=== PATIENT | male | born 2000 | race Hispanic/Latino ===

== ENCOUNTER 2024-09-23 19:43 | Emergency (ER) | payer SELFPAY ==
[~2024-09-23] VITALS: Ht 185.4 cm; Wt 81.2 kg
[2024-09-23 20:16] VITALS: TEMP 98.4
[2024-09-23] MEDS: ibuPROFEN 800 MG TAB PO ONE (20:16)
[2024-09-23] MEDS ORDERED: AMOX1TAB16 PO (20:17)
--- NOTE | 2024-09-23 20:17 | ERN ---
ED Note History of Present Illness Stated Complaint: EAR PAIN Chief Complaint: Earache Time Seen by MD: 19:47 Time Seen by Midlevel: 19:47 Dictation: The patient is a 24-year-old male with no past medical history who presents to the emergency department with complaints of left ear pain onset yesterday. Patient denies any fevers or cough. Reports occasional runny nose. Allergies: Coded Allergies: No Known Allergies (Unverified Allergy, Unknown, 09/23/24) Past Medical History Past Medical History: No Pertinent History Surgical History: None RN Note Reviewed/Agreed w/PFSH: Yes Review of System Dictation Constitutional: Negative for fever,chills, and weight loss Eyes: Negative for injury, pain,redness, and discharge ENT: Negative for injury,pain or swelling positive for left ear pain Cardiovascular: Negative for chest pain, palpitations, and edema Respiratory: Negative for shortness of breath, cough, and wheezing, Abdomen/GI: Negative for abdominal pain, nausea, vomiting, diarrhea, and constip ation Back: Negative for injury and pain : Negative for injury, bleeding and discharge MS/Extremity: Negative for injury and deformity Skin: Negative for rash, and discoloration Neuro: Negative for headache, weakness, numbness, tingling, and seizure Psych: Negative for suicide ideation, homicidal ideation, and hallucinations Initial Vital Sign VS Vital Signs Date Time Temp Pulse Resp B/P (MAP) Pulse Ox O2 Delivery O2 Flow Rate FiO2 09/23/24 19:45 98.4 81 16 126/82 98 Room Air 0 Physical Exam Dictation Vital Signs reviewed General Appearance: Alert, oriented x 3, no acute distress, well developed, nourished. Head and Face: non-traumatic. Eyes: PERRL, pink conjunctivas, eyelid no trauma, anterior chamber with arcus senilis. Ears: Pinnas intact and no signs of trauma. Left tympanic membrane difficult to visualize, green drainage from left ear canal, right ear canal with a erythema Nose: No discharge, no bleeding. Oropharynx: Mouth normal, tongue pink. pharynx clear,no erythema, tonsils no exudates, no abscesses noted, mucous membrane moist Neck: Supple, non-tender, no thyromegaly, no masses, no JVD, no bruits Breast:Deferred Chest:No tenderness, no crepitus, no paradoxical movement, no retractions Lungs:Clear, well-ventilated, symmetric, no rales, no wheezing, no rhonchi, no stridor, good breath sounds bilaterally Heart: Regular rate, regular rhythm, no murmur, no gallops Vascular: no peripheral edema, Abdomen: Soft, positive bowel sounds, nondistended, no guarding, nontender, no rebound, no masses no hepatomegaly, no splenomegaly, no Alarcon's sign, no hernias. Rectal: Deferred Genital: Deferred Neurological: Normal speech, motor function intact, sensory function intact Musculoskeletal: Neck nontender, full range of motion, back nontender, full range of motion, Extremities: nontender, full range of motion Skin: Color pink, dry, no turgor, no rash, no lacerations, no abrasions, no contusions. Lymphatic: Deferred Results (Laboratory/Radiology) Labs Reviewed?: Yes ED Course ED Course Orders Procedure Category Date Status Time Ibuprofen 800 Mg Tab PHA 09/23/24 In Process (Motrin) 20:30 Current Medications Medications (Trade) Dose Ordered Sig/Iraj Route PRN Reason Start Time Stop Time Status Last Admin Dose Admin Ibuprofen (moTRIN) 800 mg ONCE ONCE PO 09/23/24 20:30 09/23/24 20:31 Vital Signs Date Time Temp Pulse Resp B/P (MAP) Pulse Ox O2 Delivery O2 Flow Rate FiO2 09/23/24 19:45 98.4 81 16 126/82 98 Room Air 0 Medical Decision Making MDM The patient is a 24-year-old male with no past medical history who presents to the emergency department with complaints of left ear pain onset yesterday. Patient denies any fevers or cough. Reports occasional runny nose. Patient with left ear pain. Greenish drainage coming from left ear. Difficult to visualize tympanic membrane due to a drainage. Patient will be started on antibiotics for otitis media. Patient in no acute distress, nontoxic appearance. Differential diagnosis: Otitis media, otitis externa, foreign body Need for hospitalization: Patient does not meet criteria for hospitalization. There are no social concerns with this patient. DX & DISP Disposition: Discharge Departure Impression: Primary Impression: Left acute otitis media Condition: Stable Scripts Amoxicillin/Potassium Clav (Amox Tr-K Clv 875-125 mg Tab) 875 Mg-125 Mg Tablet 1 EACH PO BID for 10 Days, #20 TAB 0 Refills Prov: MICHAEL ROSALES 09/23/24 Additional Instructions: Please avoid any pools or beaches or submerging in water. Take your antibiotics as prescribed. If anything worsens please return to ER. FOLLOW-UP WITH PRIMARY CARE PROVIDER IN 1 TO 2 DAYS. TAKE MEDICATIONS DIRECTED HERE IN THE EMERGENCY ROOM. OKAY TO CONTINUE HOME MEDICATIONS UNLESS OTHERWISE DISCUSSED DURING YOUR VISIT IN THE EMERGENCY ROOM TODAY. RETURN TO YOUR NEAREST EMERGENCY ROOM IF SYMPTOMS WORSEN OR IF THERE IS NO IMPROVEMENT. CALL 911 IF YOU NEED IMMEDIATE ASSISTANCE. TAKE TYLENOL EDTC-[id number] NEEDED AND IF NO CONTRAINDICATIONS ARE PRESENT. INCREASE ORAL HYDRATION. A WOUND CULTURE OR URINE CULTURE WAS ORDERED HERE IN THE EMERGENCY ROOM DEPARTMENT PLEASE FOLLOW-UP WITH PRIMARY CARE PROVIDER AND ADVISE THEM TO GET REPEAT PORTS FROM OUR FACILITY. IF YOU HAD ANY DIYA WRAP/SPLINTS THAT WERE APPLIED HERE, PLEASE DO NOT REMOVE THEM UNTIL YOU SEE YOUR PRIMARY CARE OR SPECIALTY. Referrals: SELF,REFERRAL (PCP) Time of Disposition: 20:16 I have reviewed the case, and I agree with, Diagnosis and Plan MICHAEL ROSALES Sep 23, 2024 20:17
[2024-09-23 20:31] VITALS: BP 113/67; PULSE 84; RESP 17; TEMP 98.1; O2SAT 100
== END 2024-09-23 20:32 | disposition home or self-care (01) ==
LOC: EDH 19:43
DX: H66.92 Otitis media, unspecified, left ear (principal)
CPT/HCPCS: 99283